=== PATIENT | female | born 1975 | race Caucasian/White ===

== ENCOUNTER 2016-08-24 22:47 | Emergency (ER) | payer MEDICAID ==
[~2016-08-24] VITALS: Ht 160 cm; Wt 65.9 kg
[2016-08-24 23:33] VITALS: BP 151/100; PULSE 97; RESP 18; O2SAT 99
--- NOTE | 2016-08-24 23:47 | ED.REPORT ---
HPI-General Illness Date of Service Aug 24, 2016 ED Provider: Dr. Perkins 41 y/o female with a hx of Klonopin, heroin and meth abuse presents to the ED due to heroin withdrawal. She was prescribed 1mg Klonopin and used to take one or two pills a day until last month. She reports she was not taking them every day and requests another prescription. The pt injected heroin yesterday last. She denies taking any other medications. Pt reports her mother and brother few months ago and she wants something to help her sleep. She has not taken any opioids in the last 24 hours. Nursing Notes Stated Complaint: ANXIETY, RAN OUT OF MEDS Chief Complaint: General Complaint Nursing Notes Reviewed: Yes Allergies: Coded Allergies: No Known Allergies (Unverified , 08/24/16) Scheduled Buprenorphine HCl/Naloxone HCl (Suboxone 8 mg-2 mg Sl Film) 1 Each Film 1 EACH SL BID General Time Seen by MD: 23:47 Chief Complaint Other (Heroin withdrawal) Hx Obtained From: Patient Arrived By: Walk-in Sudden in Onset?: No Onset Occurred: 21 - 23 hours ago Symptom Duration: Since onset Severity: Current: No pain currently Severity: Maximum: No pain Recent Healthcare: No recent doctor visit Similar Sx Previous: No Past Medical History Past Medical History Heroin abuse Meth abuse Klonopin abuse Anxiety Hep C Past Surgical History Bunionectomy Smoking History Unknown if Ever Smoker Social History Drug Use: IV drugs, Meth Ambulatory Status Independent Review of Systems Heroin withdrawal Full Review of Systems Psychiatric: Reports: Agitation, Anxiety Complete sys rev & neg: except as marked. Physical Exam Vital Signs Vital Signs Date Time Temp Pulse Resp B/P Pulse Ox O2 Delivery O2 Flow Rate FiO2 08/24/16 23:33 36.3 97 18 151/100 99 Room Air Initial VS: Reviewed, Vital signs abnormal Head / Eyes: Atraumatic, Normocephalic, PERRL ENT: Mucous membranes moist, Conjunctiva normal, No scleral icterus Neck: Supple, Non-tender, Full range of motion Respiratory: Breath sounds normal, Clear to auscultation, No respiratory distress Cardiovascular: Regular rate & rhythm, Heart sounds normal, Intact distal pulses Abdomen / GI: Soft, Non-tender, No guarding, No rebound, No distention Extremities: Vascular intact, Neuro intact, No swelling, No tenderness Skin: Warm, Dry, No cyanosis Neurologic: Alert, Oriented, Nonfocal General/Constitutional: Awake, Alert Skin: Warm, Dry, Intact Track alexander on extremities without active abscess. Re-Eval/Medical Decision Med Decision/Clinical Course The patient has a long-term history of IV heroin abuse without specific complications. It has been greater than 24 hours since any heroin use, there is mild to moderate withdrawal. The patient was given 8 mg of buprenorphine sublingual here in the emergency room with relief. Follow-up at [facility] as soon as possible. Prescription was written for a 4 day supply of buprenorphine/naloxone 8/2 twice a day to last until the [facility] appointment. She also has a history of long-term Klonopin use, but apparently not recently. She believes she should be on the medicine than that I have some sort of responsibility as an emergency room physician to provide that medicine for her. She was told long-term Klonopin use is habit-forming and its combination with buprenorphine could be dangerous. She was counseled not to use benzodiazepine while on buprenorphine. Time of Eval: 01:00 Re-Evaluation/Progress Note: Rechecked pt. Discussed diagnosis. Informed the pt of the plan to discharge and referral to [facility]. Pt understands and agrees with plan. F/U instructions and RTER warning given. All questions addressed. Counseled Regarding: Diagnosis, Need for follow-up, When/why to return to ED Discharge & Departure Primary Impression: Opioid dependence with withdrawal Disposition: Home Discharge Condition All VS Reviewed: Yes Condition: Stable Patient Instructions: Buprenorphine/Naloxone (By mouth) Additional Instructions: Buprenorphine/naloxone (Suboxone) 8/2 film or tabs, one dissolved orally twice daily, #1 given in the emergency room and #10 prescription written. Call the [facility] Priority Access Line at [phone] for an appointment this week for continued maintenance treatment. Do not use any heroin or methamphetamine. Do not use alcohol or sedating medications with buprenorphine. Do not use Klonopin with buprenorphine. Treating your opioid dependence should help0 with your anxiety and insomnia. Scribe Attestation Portions of this note were transcribed by Zurdo Meadows. I, , personally performed the history, physical exam and medical decision-making;I reviewed and confirmed the accuracy of the information in the transcribed note. Signed by Adams Dailey. 08/25/16 03:14 Nikhil Perkins MD Aug 24, 2016 23:47 Zurdo Meadows August 25, 2016 01:40
[2016-08-25] MEDS ORDERED: Buprenorphine 2 mg SL Tablet SL ONE (01:20)
[2016-08-25] MEDS ORDERED: BUPR1FIL3 SL (02:04)
== END 2016-08-25 02:14 | disposition home or self-care (01) ==
LOC: SED 22:47
DX: F11.23 Opioid dependence with withdrawal (principal); F13.20 Sedative, hypnotic or anxiolytic dependence, uncomplicated; F15.20 Other stimulant dependence, uncomplicated